=== PATIENT | male | born 2000 | race Caucasian/White ===

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

== ENCOUNTER 2020-05-15 15:27 | Emergency (ER) | payer BC, MEDICAID ==
[~2020-05-15] VITALS: Ht 188 cm; Wt 108.9 kg
[2020-05-15 15:30] VITALS: BP_SYST 128
[2020-05-15] MEDS ORDERED: SOM350 PO (16:30)
[2020-05-15] MEDS ORDERED: IBUP-1971 PO (16:30)
[2020-05-15 17:30] VITALS: BP_SYST 128
== END 2020-05-15 17:30 | disposition home or self-care (01) ==
LOC: SED 15:27
DX: S23.3XXA Sprain of ligaments of thoracic spine, initial encounter (principal); Z79.899 Other long term (current) drug therapy; X50.9XXA Other and unspecified overexertion or strenuous movements or postures, initial encounter; Y93.89 Activity, other specified; Y92.89 Other specified places as the place of occurrence of the external cause; Y99.8 Other external cause status
CPT/HCPCS: 71046-TC; 99283

== ENCOUNTER 2020-10-22 13:42 | Emergency (ER) | payer BC ==
[~2020-10-22] VITALS: Ht 185.4 cm; Wt 106.6 kg
[~2020-10-22 13:42] MED LIST: IBUP-1971 PO; SOM350 PO
[2020-10-22 15:01] VITALS: BP_SYST 121
--- NOTE | 2020-10-22 15:06 | NUR ---
margarito and placed in the waiting room
--- NOTE | 2020-10-22 16:19 | NUR ---
Patient to ER bed 02 to gown for evaluation. Side rails up.
--- NOTE | 2020-10-22 16:20 | NUR ---
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 PATIENT REPORTS THAT HE HAS EPISODES OF DIZZINESS AND PAIN WAXES AND WANES. DENIES ANY BLURRED VISION, NAUSEA, VOMITING, CHEST PAIN. PAIN 6/10
--- NOTE | 2020-10-22 16:25 | NUR ---
Daryn john in [facility] - 10/22/20 at 1721 by GRIS SAMUEL Foley at bedside examining patient.
--- NOTE | 2020-10-22 16:25 | NUR ---
SAMUEL Rosales at bedside examining patient.
--- NOTE | 2020-10-22 16:25 | NUR ---
Note undone in EDM - 10/22/20 at 1715 by GRIS Patient given written and verbal discharge instructions and verbalizes understanding. ER discussed with patient the results and treatment provided. Patient in stable condition. ID arm band removed. Rx of motrin and zofran given. Patient educated on pain management and to follow up with PMD. Pain Scale 0/10. Opportunity for questions provided and answered. Medication side effect fact sheet provided.
[2020-10-22] MEDS ORDERED: IBUP-1969 PO (17:07)
[2020-10-22] MEDS ORDERED: ONDA-8 TL (17:07)
[2020-10-22 17:16] VITALS: BP_SYST 121
--- NOTE | 2020-10-22 17:16 | NUR ---
Patient given written and verbal discharge instructions and verbalizes understanding. ER MD discussed with patient the results and treatment provided. Patient in stable condition. ID arm band removed. Rx of zofran and motrin given. Patient educated on pain management and to follow up with PMD. Pain Scale 0/10. Opportunity for questions provided and answered. Medication side effect fact sheet provided.
== END 2020-10-22 17:16 | disposition home or self-care (01) ==
LOC: SED 13:42
DX: F07.81 Postconcussional syndrome (principal); Z79.899 Other long term (current) drug therapy
CPT/HCPCS: 99283